=== PATIENT | male | born 1975 | race Caucasian/White ===

== ENCOUNTER → 2017-06-29 | Outpatient (CLI) | payer OTHER | END | disposition home or self-care (01) | LOC: C.RDSM 08:00 | PROVIDERS: ATTEND Orthopaedic Surgery | DX: M25.511 Pain in right shoulder (principal) ==

== ENCOUNTER → 2017-12-31 | Day surgery (SDC) | payer OTHER ==
[2017-12-03 14:36] VITALS: BMI 32.0
[2017-12-25 12:36] VITALS: Ht 182.9 cm; Wt 106.8 kg
[~2017-12-31] VITALS: Ht 182.9 cm; Wt 106.8 kg
[~2017-12-31] MED LIST: ASCO-63 PO; ATROPINE SULFATE 0.1 MG/ML 5ML SYR IV PRN; BIOT1CAP8 PO; CEFAZOLIN 2000MG IV PUSH 15 ML IV SCH; CHOL20009 PO; DEXAMETHASONE SOD INJ 4 MG/ML VIAL ONE; ESCI1TAB10 PO; EpHEDrine SULFATE INJ 50 MG/ML AMP IV PRN; EpINEphrine INJ 1MG/ML AMP 1 MG/ML AMP ONE; FENTANYL CITRATE INJ 50 MCG/1 ML 2 ML VIAL IV PRN; FENTANYL CITRATE INJ 50 MCG/1 ML 2 ML VIAL ONE; FLUMAZENIL 0.1 MG/1 ML 10 ML VIAL IV PRN; HYDROmorphone INJ 2 MG/ML SYR/VIAL IV PRN; LABETALOL HCL IV 5 MG/ML 20ML IV PRN; LACTATED RINGER'S 1000ML 1,000 ML IV SCH; LIDOCAINE HCL 2% 2 ML VIAL (20MG/ML) ONE; MEPERIDINE HCL 25 MG/ML CARP IV PRN; METOCLOPRAMIDE HCL INJ 5 MG/ML 2 ML VIAL IV PRN; MIDAZOLAM HCL 1 MG/ML 2ML VIAL ONE; MoRPHine SULFATE 4 MG/ML 1 ML CARP\\VIAL IV PRN; NALOXONE HCL 0.4 MG/1 ML VIAL/CARP IV PRN; ONDANSETRON INJ 2 MG/ML 2 ML VIAL IV PRN; ONDANSETRON INJ 2 MG/ML 2 ML VIAL ONE; OXYCODONE/ACETAMINOPHEN 5-325 TAB PO PRN; PHENYLEPHRINE 100MCG/ML 5ML SYR IV PRN; PROPOFOL IV EMULSION 10 MG/ML 20 ML VIAL ONE; ROPIVACAINE 0.5% 5 MG/ML 30 ML VIAL ONE; SODIUM CHLORIDE 0.9% 1000ML 1,000 ML IV SCH; VITAMIN B PO
--- NOTE | 2017-12-31 11:26 | History & Physical Bridge - [place] ---
H&P Re-Evaluation Bridge Note: I have examined the patient, reviewed the History & Physical and in the interval since the performance of the History & Physical I have noted the following changes of clinical significance: No changes noted
--- NOTE | 2017-12-31 13:39 | [facility] Post Operative Brief Note ---
Immediate Operative Summary Operative Date Dec 31, 2017. Pre-Operative Diagnosis RIGHT SHOULDER AC JOINT ARTHRITIS, SUBACROMIAL BURSITIS Post-Operative Diagnosis SAME Procedure(s) Performed Right Shoulder Arthroscopy, Debridement, revision Distal Clavicle Excision, Revision Subacromial Decompression, Capsular Release, Arthroscopic Suture Removal Surgeon DR. Valentine URIARTE Substance Abuse Counselor Surgeon(s) KRYSTAL JAVIER PA-C, DR. Werner RODRÍGUEZ Estimated Blood Loss 10cc Findings Consistent with Post-Op Diagnosis Fluids (cc crystalloids) 800 Specimens NONE Drains None Anesthesia Type General Regional Complication(s) none Disposition Accompanied Pt To Recover: no Disposition: Recovery Room / PACU
--- NOTE | 2017-12-31 13:57 | [facility] Operative Report ---
Operative Report Operative Date Dec 31, 2017. Pre-Operative Diagnosis RIGHT SHOULDER AC JOINT ARTHRITIS, SUBACROMIAL BURSITIS Post-Operative Diagnosis SAME Procedure(s) Performed Right Shoulder Arthroscopy, Debridement, revision Distal Clavicle Excision, Revision Subacromial Decompression, Capsular Release, Arthroscopic Suture Removal Surgeon DR. Valentine URIARTE Diesel Engine Fitter Surgeon(s) KRYSTAL JAVIER PA-C, DR. Werner RODRÍGUEZ Estimated Blood Loss 10cc Fluids 800 Specimens NONE Drains None Anesthesia Type General Regional Complication(s) none Disposition no Recovery Room / PACU Description of Procedure I was present during the entire case and assisted with wound closure and dressing application. Please see Dr. Uriarte's procedure note for specifics of the case. I attest to the content of the Intraoperative Record and any orders documented therein. Any exceptions are noted below.
--- NOTE | 2017-12-31 14:00 | Discharge Instructions ---
Discharge Instructions Date of Service Dec 31, 2017. Admission Reason for Admission: Right Shoulder Ac Joint Arthritis, Subacromial Spur Discharge Discharge Diagnosis / Problem: Right shoulder AC joint Arthritis, Subacromal Spur Discharge Goals Goal(s): Decrease discomfort, Improve function, Increase independence Activity Recommendations Activity Limitations: as noted below Lifting Limitations: gradually increase as tolerated Exercise/Sports Limitations: until after follow-up appointment May Resume Sexual Activity: when tolerated Shower/Bathe: tomorrow, keep incision dry Driving or Machine Use: No driving until cleared by note specialist Weightbearing Status: Right weightbearing (as tolerated) . Instructions / Follow-Up Instructions / Follow-Up Post-operative Instructions Dear Patient and Family/Friends, Before you are discharged from the hospital, it is important to know what to expect when you get home after surgery. To that end, we have created this sheet of discharge instructions which covers many commonly asked questions. Make sure you go through this sheet in its entirety with your nurse before you are discharged. Please note that we will go over the specifics of your surgery and recovery when you return for your first post-operative visit. Sincerely, Dr. Saenz Pain Expect to be in a fair amount of pain after surgery. Remember, our goal is not to eliminate your pain, but to make it tolerable. It is a good idea to stay ahead of your pain by taking the medications you were prescribed once you get home. Typically, the pain starts improving 3-7 days after surgery. You should start weaning off the narcotic pain medication (oxycodone, hydrocodone, hydromorphone, morphine) as soon as your pain improves. Please call our office if your pain is not adequately controlled. Ice Ice your operative site at least 5 times a day for 15-30 minutes at a time. Make sure you have a thin cloth between the ice or cooling unit and your skin to prevent roberson bite. This is especially important if you received a nerve block. Continue icing your operative site for the first 5-7 days after surgery , then as needed. Diet/Nausea/Vomiting Start by drinking clear liquids and eating crackers. If you can tolerate this, then you may resume your normal diet. If you feel nauseated or vomit, take Zofran/ondansetron (if prescribed). Please call our office if you have intractable nausea or vomiting, or, if after hours, you may go to the Emergency Room for help. Constipation Constipation is a common side effect of narcotic pain medication. If you have not had a bowel movement within 2 days after surgery, we recommend purchasing an over the counter laxative such as Milk of Magnesia, Dulcolax, or Miralax from a local pharmacy, and taking it as instructed. Call our clinic if any questions. Slings and Braces If you were placed in a sling or brace, it must be worn at all times, including sleep. You may remove your sling or brace for physical therapy, home exercises , and showering. The length of time you will be in your brace and range of motion restrictions depends on what surgery you had; these details will be reviewed at your first post-operative appointment. Nerve block The anesthesia team sometimes places a nerve block to help with post-operative pain control. This results in significant numbness and inability to move the extremity. The nerve block usually wears off in 8-12 hours, but sometimes can last up to 24 hours. Please call our office if you are still unable to move your extremity after 24 hours, unless you received a pain pump to take home. Nerve blocks typically wear off quickly, so start taking pain medication as soon as you start feeling soreness near your surgical site. Weight bearing and Range of Motion. Do not bear any weight through your operative extremity immediately after surgery. If you had upper extremity surgery, do not lift anything with that arm. If you are in a knee brace, keep it locked in place until your follow-up. We will discuss your weight bearing, range of motion, and lifting restrictions in detail at your first post-operative appointment. Continuous Passive Motion (CPM) Machine If you were prescribed a CPM machine, it will start after your first post- operative appointment, at which time we will give you instructions on the range of motion settings and duration of treatment Physical therapy You will be given a prescription for physical therapy or occupational therapy at your first post-operative appointment. Typically, patients start therapy within 1 week of surgery Wound care and showering We will inspect your wound at your first post-operative visit, and may do a dressing change at that time. Most patients will be in a water-proof dressing that is removed 14 days after surgery. It is normal to see some dried blood on the dressing. Do not remove your dressing, paper strips or sutures yourself unless you are given permission. Showering is allowed the day after surgery. Do not scrub or remove any dressings. The wound should not be submerged underwater (i.e. in a bathtub or pool) until 4 weeks after surgery SOHAN stockings If you were given white stockings, these are to be worn at all times except to shower (on both legs) for the first 2 weeks after surgery. Driving You may not drive while taking narcotic pain medication or while in a cast, splint, sling or brace. You, the patient, need to make the final determination about when you are safe to drive, however, the earliest you may consider driving after surgery is below: Hand/Wrist/Elbow Surgery: 3 days Shoulder Surgery: 2 weeks Hip,/Knee/Ankle Surgery: 4 weeks Fracture repair: 6 weeks Return to Work Your return to work depends on what surgery was done and what type of work you do. Please bring any paperwork your employer needs completed to your first post -operative visit. Also, bring a description of your job duties, as this helps us to understand what risks you may face at work. Travel Avoid long distance travel (greater than 1 hour) in airplanes and cars for the first 6 weeks after surgery. If you must travel, you need to have a Doppler ultrasound done before you travel to rule out a blood clot in your legs. Follow-up You should have a follow-up appointment already scheduled 1-2 days after surgery. If not, please contact our office to make this appointment before you leave the hospital. When to call the office It is normal to have swelling and bruising in the limb that was operated on. This will improve with time. It is also normal to have fevers for the first 2 days after surgery. Reasons you should call your doctor include: Uncontrolled pain; Nausea, vomiting, or constipation that does not improve with medication; Fevers over 101.5, chills, sweats; Drainage or bleeding from the wound; Foul odor; Spreading areas of redness; Any other concerns Current Hospital Diet Patient's current hospital diet: Discharge Diet Recommended Diet: Regular Diet Procedures Procedures Performed: Right Shoulder Arthroscopy, Debridement, revision Distal Clavicle Excision, Revision Subacromial Decompression, Capsular Release, Arthroscopic Suture Removal Pending Studies Studies pending at discharge: no Medical Emergencies . Who to Call and When: Medical Emergencies: If at any time you feel your situation is an emergency, please call 911 immediately. . Non-Emergent Contact Non-Emergency issues call your: Primary Care Provider Call Non-Emergent contact if: you have a fever, temperature is above 101.5, your pain is not controlled, your pain is worsening, wound has increased drainage, you have any medication questions . "Provider Documentation" section prepared by Jeremy Nguyen. . [place] Drug Monitoring Program Search Results: patient reviewed within database, no issues identified, see additional documentation
--- NOTE | 2017-12-31 14:15 | OPERATIVE REPORT ---
DATE OF OPERATION: 12/31/2017 PREOPERATIVE DIAGNOSES: Right shoulder acromioclavicular joint arthritis and subacromial bursitis. POSTOPERATIVE DIAGNOSES: Right shoulder acromioclavicular joint arthritis and subacromial bursitis and loose suture in the subscapularis as well as rotator interval scarring. OPERATIONS PERFORMED: 1. Right shoulder arthroscopic revision, distal clavicle excision. 2. Right shoulder arthroscopic revision, subacromial decompression. 3. Arthroscopic partial capsular release. 4. Arthroscopic suture removal. A 22 modifier should be added due to the extensive scarring in the subacromial space and AC joint. SURGEON: Ruddy Saenz MD. ASSISTANTS: Porfirio Montez and Lauro Nguyen. ESTIMATED BLOOD LOSS: 10 mL. IV FLUIDS: 800 mL crystalloid. SPECIMENS: None. IMPLANTS: None. COMPLICATIONS: None. 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 I have been following him for several months. When he initially presented, he had stiffness in his shoulder. We were able to get his stiffness to resolve; however, he continued to have pain in the lateral aspect of the shoulder as well as superiorly over his AC joint. An MRI was obtained showing some residual bone spur off the acromion as well as some narrowing of the AC joint despite the distal clavicle excision. Exam is significant for tenderness at the AC joint and positive Neer and Rios test. After reviewing all the risks and benefits of surgery, having failed a long course of conservative management, he elected to proceed. All questions were answered. Informed consent was signed. OPERATIVE FINDINGS: 1. The biceps had already been tenotomized and was not visible in the joint. 2. The labrum showed some bruising along its anterior superior aspect at approximately the 1:30 position potentially from a loose suture that was visible at the subscapularis repair site. 3. The articular cartilage of the glenoid and the humeral head were normal. 4. The rotator interval showed some scarring consistent with his previous diagnosis of adhesive capsulitis. 5. The subscapularis tendon repair had healed; however, there was a loose suture in the anterior aspect of the joint. 6. The supraspinatus was intact and healed. 7. The infraspinatus was intact and healed. 8. In subacromial space, he had extensive subacromial scarring. There was some residual anteriorly based spurring on the undersurface of the acromion. This previous distal clavicle excision showed some narrowing predominantly on the inferior portion of the clavicle with extensive scar formation. The scar tissue and capsule in the rotator interval of the shoulder was debrided and released. A full capsular release, however, was not performed given his clinically intact range of motion. The suture in the subscapularis was removed arthroscopically. In the subacromial space, we performed a revision distal clavicle excision and revision subacromial decompression. DESCRIPTION OF THE OPERATION: The patient was identified in the preoperative holding area where his surgical site was marked. He was given an interscalene block by anesthesia and brought back to main operating room where he was placed on the operating room table and general anesthesia was administered. He was then carefully moved into the lateral decubitus position. Axillary roll was placed. All bony prominences were padded. Perioperative antibiotics were administered. He was prepped and draped in the normal sterile fashion. Prior to incision, a multidisciplinary timeout was called. All in the room were in agreement. We began by placing his arm in 10 pounds of longitudinal traction. A posterior viewing portal was created followed by anterior working portal under direct visualization. We then performed a diagnostic arthroscopy revealing the above findings. Once the diagnostic arthroscopy was complete, the scar in the rotator interval was removed with a combination of shaver and electrocautery. Some of the scar extending into the middle glenohumeral ligament was excised as well. However, there was no erythema in the inferior capsular pouch and so this was left alone. There was a loose suture in the subscapularis that was cut flush with the anchor using a knife through an accessory anterior superolateral portal. The suture was removed without difficulty. We then cauterized the area of bruising of the labrum gently with electrocautery. Next, the arthroscope was moved to the subacromial space. The extensive bursitis and scarring were resected with a shaver and cautery. The undersurface of the acromion was exposed and the was residual bone spur with was resected with a mckayla. We then exposed the distal clavicle from its anterior, posterior and inferior aspects leaving the superior capsule ligaments intact. The mckayla was then used to resect more distal clavicle as the gap was only about 7 mm at its narrowest portion. Once the revision distal clavicle excision was complete, there was a 10 mm distal clavicle to acromion gap. Next, we carefully examined his rotator cuff. There were no full thickness tears evident, and therefore, this was left alone. Final arthroscopic images were then obtained. The arthroscope was removed from the shoulder. His portals were closed with 3-0 Monocryl sutures. Steri-Strips were applied followed by sterile dressing. The patient was then awoke from anesthesia and transferred to recovery room in stable condition. POSTOPERATIVE COURSE: The patient will be discharged home from recovery room. He will follow up in my clinic tomorrow to start his physical therapy and review of his restrictions. He will be on the subacromial decompression protocol. Aspirin for DVT prophylaxis. I attest to the content of the Intraoperative Record and any orders documented therein. Any exceptions are noted below. VINICIO
[2017-12-31 14:41] VITALS: TEMP 36.4
--- NOTE | 2017-12-31 15:10 | Anesthesia Progress Nt - [facility] ---
Anesthesia Post Op Note Date & Time Dec 31, 2017 at 15:10 Vital Signs Pain Intensity: 0 Vital Signs Past 12 Hours Date Time Temp Pulse Resp B/P (MAP) Pulse Ox O2 Delivery O2 Flow Rate FiO2 12/31/17 14:41 36.4 62 16 115/79 (91) 95 Room Air 12/31/17 14:31 129/83 12/31/17 14:30 36.4 59 16 129/83 95 Room Air 12/31/17 14:29 64 12 12/31/17 14:29 63 12 133/85 96 12/31/17 14:27 96/53 12/31/17 14:24 66 13 12/31/17 14:24 68 13 93 12/31/17 14:21 119/77 12/31/17 14:19 54 16 12/31/17 14:19 56 16 92 12/31/17 14:16 122/68 12/31/17 14:14 60 15 12/31/17 14:14 61 15 93 12/31/17 14:12 100/67 12/31/17 14:09 62 21 12/31/17 14:09 63 21 99 12/31/17 14:06 119/70 12/31/17 14:04 56 15 12/31/17 14:04 55 15 100 12/31/17 14:02 113/70 12/31/17 13:59 52 17 98 12/31/17 13:59 53 17 12/31/17 13:56 131/83 12/31/17 13:55 36.4 62 16 131/83 98 Mask 6 12/31/17 11:29 0 12/31/17 11:28 20 12/31/17 11:28 20 12/31/17 11:26 116/71 12/31/17 11:26 116/71 12/31/17 11:23 53 19 97 12/31/17 11:23 53 19 97 12/31/17 11:23 56 12/31/17 11:23 56 12/31/17 11:22 57 28 98 12/31/17 11:22 59 12/31/17 11:21 116/73 12/31/17 11:17 57 15 97 12/31/17 11:17 56 12/31/17 11:16 112/83 12/31/17 11:13 61 7/23/18 11:13 64 26 98 12/31/18 11:11 118/89 18 11:08 62 21 98 12/31/18 11:08 60 12/31/18 11:07 130/86 12/31/18 11:03 61 12/31/18 11:03 61 18 98 12/31/18 11:01 115/87 12/31/18 10:58 68 12/31/18 10:58 67 30 98 12/31/18 10:57 69 12/31/18 10:57 68 19 130/73 98 12/31/18 10:52 66 29 98 12/31/18 10:52 68 12/31/18 10:51 65 25 135/101 12/31/ 10:51 62 12/31/18 10:46 56 12/31/18 10:46 55 7 150/93 96 18 10:45 61 30 98 12/31/18 10:45 60 18 10:42 134/91 12/31/17 10:40 58 18 10:40 57 0 97 12/31/18 10:35 63 12/31/18 10:35 61 0 98 12/31/18 10:30 67 0 12/31/18 10:25 58 0 12/31/18 10:20 63 0 12/31/18 10:15 59 15 12/31/18 10:15 15 12/31/18 10:10 62 14 12/31/18 10:10 14 18 10:05 14 18 10:05 54 14 18 10:01 120/77 18 10:00 56 12/31/18 10:00 56 18 09:58 36.8 62 20 129/78 (95) 96 Room Air Notes Mental Status: alert / awake / arousable, participated in evaluation Pt Amnestic to Procedure: Yes Nausea / Vomiting: adequately controlled Pain: adequately controlled Airway Patency, RR, SpO2: stable & adequate BP & HR: stable & adequate Hydration State: stable & adequate Anesthetic Complications: no major complications apparent
[2017-12-31 15:12] VITALS: BP 123/55; PULSE 64; O2SAT 95
== END | disposition home or self-care (01) ==
LOC: X.SURG 09:45
PROVIDERS: ATTEND Orthopaedic Surgery
DX: M19.011 Primary osteoarthritis, right shoulder (principal); M75.51 Bursitis of right shoulder; T84.498A Other mechanical complication of other internal orthopedic devices, implants and grafts, initial encounter; G47.33 Obstructive sleep apnea (adult) (pediatric); E66.9 Obesity, unspecified; Z68.32 Body mass index [BMI] 32.0-32.9, adult; Z87.891 Personal history of nicotine dependence; Y83.1 Surgical operation with implant of artificial internal device as the cause of abnormal reaction of the patient, or of later complication, without mention of misadventure at the time of the procedure